=== PATIENT | female | born 1945 | race Caucasian/White ===

== ENCOUNTER 2021-05-06 12:28 | Inpatient (IN) ==
[2021-05-06] MEDS ORDERED: *HR* HYDROcodone/Acet 5/325 mg TABLET PO ONE ×2 (13:32→14:45)
[2021-05-06 15:20] LABS: Basophils # 0.1 K/mcL (0.0-0.2); Basophils % 0.3 %; Eosinophils # 0.1 K/mcL (0.0-0.6); Eosinophils % 0.7 %; Hematocrit 42.3 % (35.3-44.9); Immature Granulocytes % 0.7 % (0-4); Lymphocytes # 0.8 K/mcL (0.6-4.6); Lymphocytes % 5.1 %; Mean Corpuscular HGB Conc 33.1 g/dL (31.6-35.5); Mean Corpuscular Hemoglobin 32.5 pg (28.0-33.3); Mean Corpuscular Volume 98.1 fL (83.0-100.0); Mean Platelet Volume 9.8 fL (9.4-12.4); Monocytes # 1.1 K/mcL (0.0-1.3); Monocytes % 7.2 %; Neutrophils # 13.1 K/mcL (1.6-8.9); Platelet Count 316 K/mcL (140-400); Red Blood Count 4.31 M/mcL (3.82-4.97); Red Cell Distribution Width 12.9 % (11.5-14.5); White Blood Count 15.2 K/mcL (4.3-11.1)
[2021-05-06] MEDS ORDERED: *HR* HYDROcodone/Acet 5/325 mg TABLET ONE (15:20)
[2021-05-06] MEDS ORDERED: Tdap (Boostrix) Vaccine 0.5 ML SYRINGE IM ONE (15:41)
[2021-05-06 15:42] LABS: BUN/Creatinine Ratio 20 (6-26); Blood Urea Nitrogen 17 mg/dL (8-23); Calcium 9.7 mg/dL (8.6-10.3); Carbon Dioxide 25 mEq/L (23-29); Chloride 101 mEq/L (98-107); Glucose 108 mg/dL (70-105); Osmolality,Calculated 286 (280-300); Potassium 3.8 mEq/L (3.5-5.1); Sodium 137 mEq/L (136-145); eGFR For African Americans > 60 (> 60); eGFR For Non-African Americans > 60 (> 60)
[2021-05-06] MEDS ORDERED: Naloxone 0.4 MG/ML INJ IVP PRN (15:55)
[2021-05-06] MEDS ORDERED: Ondansetron ODT 4 MG TAB.RAPDIS SL PRN (15:55)
[2021-05-06] MEDS ORDERED: *HR* HYDROmorphone (PF) 1 MG/ML SYRINGE IVP ONE (16:36)
[2021-05-06 16:57] LABS: Prothrombin Time 11.5 Seconds (9.4-12.1)
[2021-05-06] MEDS: *HR* OxyCODONE Immed Rel 5 MG TABLET PO PRN (20:01)
[2021-05-06] MEDS: Acetaminophen 325 MG TABLET PO PRN (22:52)
[2021-05-06] MEDS ORDERED: Melatonin 3 MG TABLET PO ONE (23:26)
[2021-05-06] MEDS ORDERED: rOPINIRole 1 MG TABLET PO ONE (23:27)
[2021-05-07] MEDS: *HR* OxyCODONE Immed Rel 5 MG TABLET PO PRN ×6 (00:34→23:15)
[2021-05-07 01:20] LABS: Hematocrit 39.9 % (35.3-44.9); Hemoglobin 12.7 g/dL (11.5-15.4); Mean Corpuscular HGB Conc 31.8 g/dL (31.6-35.5); Mean Corpuscular Hemoglobin 31.8 pg (28.0-33.3); Platelet Count 328 K/mcL (140-400); Red Blood Count 3.99 M/mcL (3.82-4.97); Red Cell Distribution Width 13.1 % (11.5-14.5); White Blood Count 10.9 K/mcL (4.3-11.1)
[2021-05-07 01:41] LABS: BUN/Creatinine Ratio 19 (6-26); Blood Urea Nitrogen 17 mg/dL (8-23); Calcium 9.1 mg/dL (8.6-10.3); Carbon Dioxide 26 mEq/L (23-29); Chloride 99 mEq/L (98-107); Glucose 132 mg/dL (70-105); Osmolality,Calculated 285 (280-300); Potassium 3.7 mEq/L (3.5-5.1); Sodium 136 mEq/L (136-145); eGFR For African Americans > 60 (> 60); eGFR For Non-African Americans > 60 (> 60)
[2021-05-07] MEDS ORDERED: rOPINIRole 1 MG TABLET PO PRN ×2 (08:04→21:09)
[2021-05-07] MEDS ORDERED: Melatonin 3 MG TABLET PO PRN ×2 (08:25→21:09)
[2021-05-07] MEDS ORDERED: valACYclovir 500 MG TABLET PO SCH (09:00)
[2021-05-07] MEDS ORDERED: lisinopriL 20 MG TABLET PO SCH (09:00)
[2021-05-07] MEDS ORDERED: hydroCHLOROthiazide 25 MG TABLET PO SCH (09:00)
[2021-05-07] MEDS: Acetaminophen 325 MG TABLET PO PRN (11:34)
[2021-05-07] MEDS: Magnesium Oxide 400 MG TABLET PO SCH (11:35)
[2021-05-07 13:09] LABS: Adenovirus Not Detected (Not Detect); Bordetella Pertussis Not Detected (Not Detect); Chlamydophila pneumoniae Not Detected (Not Detect); Coronavirus 229E Not Detected (Not Detect); Coronavirus HKU1 Not Detected (Not Detect); Coronavirus NL63 Not Detected (Not Detect); Coronavirus OC43 Not Detected (Not Detect); Human Metapneumovirus Not Detected (Not Detect); Human Rhinovirus/Enterovirus Not Detected (Not Detect); Influenza A Subtype 2009 H1 Not Detected (Not Detect); Influenza B Not Detected (Not Detect); Mycoplasma pneumoniae Not Detected (Not Detect); Parainfluenza Virus 1 Not Detected (Not Detect); Parainfluenza Virus 2 Not Detected (Not Detect); Parainfluenza Virus 3 Not Detected (Not Detect); Parainfluenza Virus 4 Not Detected (Not Detect); Respiratory Syncytial Virus Not Detected (Not Detect); SARS-CoV-2 Not Detected (Not Detect)
[2021-05-07] MEDS ORDERED: Azithromycin 500 MG in 0.9 % Sodium Chloride 250 ML IVPB SCH (14:00)
[2021-05-07] MEDS ORDERED: cefTRIAXone 2,000 MG in Water for inj. (sterile) 20 ML IVP SCH (14:00)
[2021-05-07] MEDS ORDERED: *HR* FentaNYL (PF) 100 MCG/2 ML VIAL ONE (16:32)
[2021-05-07] MEDS ORDERED: Lidocaine/EPI 1:100k 1% 50 ML VIAL ONE (17:36)
[2021-05-07] MEDS ORDERED: *HR* HYDROmorphone PF 0.5 MG/0.5 ML SYRINGE IVP PRN ×2 (17:53→21:09)
[2021-05-07] MEDS ORDERED: Ondansetron 4 MG/2 ML VIAL IVP PRN ×2 (17:53→21:09)
[2021-05-07] MEDS ORDERED: EPHEDrine 50 MG/ML VIAL ONE (18:22)
[2021-05-07] MEDS ORDERED: Ondansetron 4 MG/2 ML VIAL ONE (18:49)
[2021-05-07] MEDS ORDERED: Naloxone 0.4 MG/ML INJ IVP PRN (21:09)
[2021-05-07] MEDS ORDERED: Ondansetron ODT 4 MG TAB.RAPDIS SL PRN (21:09)
[2021-05-08 01:22] LABS: Bilirubin,Urine Negative (Negative); Blood,Urine Negative (Negative); Clarity,Urine Clear (Clear); Color,Urine Light-Yellow (Yellow); Glucose,Urine (UA) Normal (Normal); Ketones,Urine Negative (Negative); Leukocyte Esterase,Urine Trace (Negative); Mucus,Urine Few per lpf (None-Few); Nitrite,Urine Negative (Negative); Protein,Urine Negative (Neg-Trace); RBC,Urine 0-3 per hpf (0-3); Specific Gravity,Urine 1.017 (1.010-1.025); Urobilinogen,Urine Normal (Normal)
[2021-05-08] MEDS: *HR* OxyCODONE Immed Rel 5 MG TABLET PO PRN ×5 (06:07→22:24)
[2021-05-08] MEDS: Magnesium Oxide 400 MG TABLET PO SCH ×2 (09:03→22:24)
[2021-05-08] MEDS: valACYclovir 500 MG TABLET PO SCH (09:05)
[2021-05-08] MEDS: lisinopriL 20 MG TABLET PO SCH (09:05)
[2021-05-08] MEDS: hydroCHLOROthiazide 25 MG TABLET PO SCH (09:05)
[2021-05-08] MEDS: Aspirin Enteric Coated 325 MG Tablet PO SCH (09:05)
[2021-05-08] MEDS: cefTRIAXone 2,000 MG in Water for inj. (sterile) 20 ML IVP SCH (14:51)
[2021-05-08] MEDS ORDERED: Isovue-370 500 ML BOTTLE IVP ONE (15:10)
[2021-05-08] MEDS ORDERED: Azithromycin 250 MG TABLET PO ONE (16:27)
[2021-05-08] MEDS: Acetaminophen 325 MG TABLET PO PRN (18:01)
[2021-05-09 02:49] LABS: Basophils % 0.3 %; Eosinophils % 0.1 %; Hematocrit 34.2 % (35.3-44.9); Immature Granulocytes % 0.6 % (0-4); Lymphocytes # 0.9 K/mcL (0.6-4.6); Mean Corpuscular Hemoglobin 31.7 pg (28.0-33.3); Mean Corpuscular Volume 102.4 fL (83.0-100.0); Mean Platelet Volume 10.1 fL (9.4-12.4); Monocytes # 1.6 K/mcL (0.0-1.3); Monocytes % 11.2 %; Neutrophils # 11.5 K/mcL (1.6-8.9); Platelet Count 256 K/mcL (140-400); Red Blood Count 3.34 M/mcL (3.82-4.97); Red Cell Distribution Width 13.8 % (11.5-14.5); Segmented Neutrophils % 81.8 %; White Blood Count 14.1 K/mcL (4.3-11.1)
[2021-05-09 02:51] LABS: Hemoglobin 10.6 g/dL (11.5-15.4)
[2021-05-09 03:09] LABS: Calcium 8.8 mg/dL (8.6-10.3); Magnesium 2.5 mg/dL (1.6-2.6); Potassium 4.1 mEq/L (3.5-5.1)
[2021-05-09] MEDS ORDERED: 0.9 % Sodium Chloride 1,000 ML IVC SCH (08:00)
[2021-05-09] MEDS: Aspirin Enteric Coated 325 MG Tablet PO SCH (08:26)
[2021-05-09] MEDS: hydroCHLOROthiazide 25 MG TABLET PO SCH (08:26)
[2021-05-09] MEDS: Magnesium Oxide 400 MG TABLET PO SCH ×3 (08:26→21:28)
[2021-05-09] MEDS: valACYclovir 500 MG TABLET PO SCH (08:27)
[2021-05-09] MEDS: lisinopriL 20 MG TABLET PO SCH (08:27)
[2021-05-09] MEDS: *HR* OxyCODONE Immed Rel 5 MG TABLET PO PRN ×3 (08:27→18:02)
[2021-05-09] MEDS: cefTRIAXone 2,000 MG in Water for inj. (sterile) 20 ML IVP SCH (13:15)
[2021-05-09] MEDS ORDERED: Azithromycin 250 MG TABLET PO SCH (16:30)
[2021-05-09] MEDS ORDERED: Ketorolac 30 MG/ML VIAL IVP ONE (21:11)
[2021-05-09] MEDS ORDERED: Morphine Sulfate 2 MG/ML SYRINGE IVP ONE (21:12)
[2021-05-10] MEDS: *HR* OxyCODONE Immed Rel 5 MG TABLET PO PRN ×4 (04:08→17:06)
[2021-05-10] MEDS ORDERED: Ketorolac 30 MG/ML VIAL IVP ONE (05:15)
[2021-05-10 06:12] LABS: Basophils % 0.3 %; Eosinophils # 0.1 K/mcL (0.0-0.6); Eosinophils % 0.7 %; Hematocrit 29.3 % (35.3-44.9); Immature Granulocytes % 0.6 % (0-4); Lymphocytes # 0.5 K/mcL (0.6-4.6); Lymphocytes % 4.6 %; Mean Corpuscular HGB Conc 30.7 g/dL (31.6-35.5); Mean Corpuscular Hemoglobin 31.4 pg (28.0-33.3); Mean Corpuscular Volume 102.1 fL (83.0-100.0); Monocytes # 1.1 K/mcL (0.0-1.3); Monocytes % 10.7 %; Neutrophils # 8.8 K/mcL (1.6-8.9); Platelet Count 267 K/mcL (140-400); Red Blood Count 2.87 M/mcL (3.82-4.97); Red Cell Distribution Width 13.4 % (11.5-14.5); Segmented Neutrophils % 83.1 %; White Blood Count 10.6 K/mcL (4.3-11.1)
[2021-05-10 06:36] LABS: BUN/Creatinine Ratio 35 (6-26); Blood Urea Nitrogen 25 mg/dL (8-23); Calcium 8.3 mg/dL (8.6-10.3); Carbon Dioxide 30 mEq/L (23-29); Chloride 97 mEq/L (98-107); Glucose 107 mg/dL (70-105); Magnesium 2.6 mg/dL (1.6-2.6); Osmolality,Calculated 283 (280-300); Potassium 3.7 mEq/L (3.5-5.1); Sodium 134 mEq/L (136-145); eGFR For African Americans > 60 (> 60); eGFR For Non-African Americans > 60 (> 60)
[2021-05-10] MEDS: Magnesium Oxide 400 MG TABLET PO SCH ×2 (08:23→21:00)
[2021-05-10] MEDS: Aspirin Enteric Coated 325 MG Tablet PO SCH (08:23)
[2021-05-10] MEDS: hydroCHLOROthiazide 25 MG TABLET PO SCH (08:23)
[2021-05-10] MEDS: valACYclovir 500 MG TABLET PO SCH (08:23)
[2021-05-10] MEDS: lisinopriL 20 MG TABLET PO SCH (08:23)
[2021-05-10] MEDS: polyethylene glycoL 3350 17 GM POWD.PACK PO SCH (15:01)
[2021-05-10] MEDS: Acetaminophen 325 MG TABLET PO PRN (20:59)
[2021-05-10 21:36] LABS: Bilirubin,Urine Negative (Negative); Blood,Urine Negative (Negative); Clarity,Urine Clear (Clear); Color,Urine Yellow (Yellow); Glucose,Urine (UA) Normal (Normal); Ketones,Urine Negative (Negative); Leukocyte Esterase,Urine Negative (Negative); Nitrite,Urine Negative (Negative); Protein,Urine Trace mg/dL (Neg-Trace); Urobilinogen,Urine Normal (Normal)
[2021-05-11] MEDS: *HR* OxyCODONE Immed Rel 5 MG TABLET PO PRN ×6 (00:59→23:30)
[2021-05-11 05:36] LABS: Basophils % 0.3 %; Eosinophils # 0.1 K/mcL (0.0-0.6); Eosinophils % 1.8 %; Hematocrit 28.5 % (35.3-44.9); Hemoglobin 9.3 g/dL (11.5-15.4); Immature Granulocytes % 0.5 % (0-4); Lymphocytes # 0.7 K/mcL (0.6-4.6); Lymphocytes % 8.6 %; Mean Corpuscular HGB Conc 32.6 g/dL (31.6-35.5); Mean Corpuscular Hemoglobin 32.6 pg (28.0-33.3); Mean Platelet Volume 9.5 fL (9.4-12.4); Monocytes # 0.8 K/mcL (0.0-1.3); Monocytes % 10.8 %; Neutrophils # 5.9 K/mcL (1.6-8.9); Platelet Count 293 K/mcL (140-400); Red Blood Count 2.85 M/mcL (3.82-4.97); Red Cell Distribution Width 13.2 % (11.5-14.5); White Blood Count 7.6 K/mcL (4.3-11.1)
[2021-05-11 05:58] LABS: BUN/Creatinine Ratio 36 (6-26); Blood Urea Nitrogen 26 mg/dL (8-23); Calcium 8.4 mg/dL (8.6-10.3); Carbon Dioxide 31 mEq/L (23-29); Chloride 97 mEq/L (98-107); Glucose 105 mg/dL (70-105); Osmolality,Calculated 283 (280-300); Potassium 3.8 mEq/L (3.5-5.1); Sodium 134 mEq/L (136-145); eGFR For African Americans > 60 (> 60); eGFR For Non-African Americans > 60 (> 60)
[2021-05-11] MEDS: hydroCHLOROthiazide 25 MG TABLET PO SCH (07:57)
[2021-05-11] MEDS: Magnesium Oxide 400 MG TABLET PO SCH (07:57)
[2021-05-11] MEDS: lisinopriL 20 MG TABLET PO SCH (07:57)
[2021-05-11] MEDS: valACYclovir 500 MG TABLET PO SCH (07:57)
[2021-05-11] MEDS: polyethylene glycoL 3350 17 GM POWD.PACK PO SCH (07:57)
[2021-05-11] MEDS: Ipratropium/Albuterol Neb 3 ML IH SCH ×3 (14:41→21:56)
[2021-05-12] MEDS: *HR* OxyCODONE Immed Rel 5 MG TABLET PO PRN ×5 (03:51→23:16)
[2021-05-12] MEDS: Ipratropium/Albuterol Neb 3 ML IH SCH ×4 (04:00→22:13)
[2021-05-12 06:35] LABS: BUN/Creatinine Ratio 25 (6-26); Blood Urea Nitrogen 16 mg/dL (8-23); Calcium 8.7 mg/dL (8.6-10.3); Carbon Dioxide 33 mEq/L (23-29); Chloride 97 mEq/L (98-107); Glucose 106 mg/dL (70-105); Osmolality,Calculated 284 (280-300); Sodium 136 mEq/L (136-145); eGFR For African Americans > 60 (> 60); eGFR For Non-African Americans > 60 (> 60)
[2021-05-12] MEDS: hydroCHLOROthiazide 25 MG TABLET PO SCH (08:37)
[2021-05-12] MEDS: valACYclovir 500 MG TABLET PO SCH (08:37)
[2021-05-12] MEDS ORDERED: Milk and Molasses Enema 200 ML RC ONE (12:58)
[2021-05-12] MEDS: lisinopriL 20 MG TABLET PO SCH (15:40)
[2021-05-13] MEDS: Ipratropium/Albuterol Neb 3 ML IH SCH (04:11)
[2021-05-13] MEDS: *HR* OxyCODONE Immed Rel 5 MG TABLET PO PRN ×2 (04:35→08:23)
[2021-05-13 07:33] VITALS: BP 128/59; PULSE 86; TEMP 97.8; O2SAT 93
[2021-05-13] MEDS: hydroCHLOROthiazide 25 MG TABLET PO SCH (08:23)
[2021-05-13] MEDS: lisinopriL 20 MG TABLET PO SCH (08:23)
[2021-05-13] MEDS: valACYclovir 500 MG TABLET PO SCH (08:24)
== END 2021-05-13 10:47 | disposition other institution (70) | DRG 510 ==
LOC: EMEROOARM 12:28 → 3NENU 12:28 → SUATTDRO 16:35 → 3NENU 18:00
PROVIDERS: ADMIT Pharmacist; ATTEND Internal Medicine